=== PATIENT | female | born 1960 | race African-American/Black ===

== ENCOUNTER 2016-09-03 15:12 | Emergency (ER) | payer BC, OTHER ==
[~2016-09-03 15:12] MED LIST: CELEXA40 MG PO; LISINOPRIL40 MG PO; NORCO1 TAB PO; OS500+D PO; RANITIDINE IM; TRAZ50 PO; ZANTAC25 MG PO
== END 2016-09-03 17:54 | disposition home or self-care (01) ==
LOC: ER 15:12
DX: M72.2 Plantar fascial fibromatosis (principal); F17.200 Nicotine dependence, unspecified, uncomplicated; I10 Essential (primary) hypertension; F41.9 Anxiety disorder, unspecified; Z79.899 Other long term (current) drug therapy
CPT/HCPCS: 73610-LT; 99283